=== PATIENT | male | born 1945 | race Caucasian/White ===

== ENCOUNTER 2023-06-09 18:05 | Emergency (ER) | payer MEDICARE, OTHER, SELFPAY ==
[2023-06-09 18:08] VITALS: BP 181/95
[2023-06-09 18:35] LABS: ALT (SGPT) 74 U/L (0-50); AST (SGOT) 109 U/L (17-59); Albumin 4.6 g/dl (3.5-5.0); Alcohol 116 mg/dl; Alkaline Phosphatase 113 U/L (38-126); Blood Urea Nitrogen 14 mg/dl (9-20); Calcium 9.5 mg/dl (8.4-10.2); Carbon Dioxide 21 mmol/L (22-30); Chloride 97 mmol/L (98-107); Glucose 104 mg/dl (70-99); Potassium 4.5 mmol/L (3.5-5.1); Sodium 134 mmol/L (135-145); Total Bilirubin 1.3 mg/dl (0.2-1.3); Total Protein 7.4 g/dl (6.3-8.2); eGFR > 60.00
--- NOTE | 2023-06-09 20:53 | ED.GENMED ---
History of Present Illness
General
Chief Complaint: Alcohol Problem
Source: patient
Exam Limitations: none
Time Seen by Provider: 06/09/23 20:48
Travel History
Have you had any contact with someone who has COVID-19?: No
Do you have any symptoms of coronavirus? Fever > 100 degrees, chills, cough, shortness of breath, sore throat, loss of taste or smell, muscle aches, or headache?: No
History of Present Illness
History of Present Illness:
See MDM
Past History
Past History
ED Past Medical History: Arrthythmia (Atrial fibrillation with prior multiple cardioversions, ablations x 2 last, 2016, on Xarelto), GERD, HTN and Other (H-pylori, hemorrhoids, diverticulosis, hiatal hernia)
ED Past Surgical History: Cardiac and Other (eye surgery)
Social History
Tobacco: Non-smoker
Alcohol: Daily (Beer 4-6 sometimes more)
Drug: None
Personal:
Living: with family
Employment: Retired
Phy Exam
Physical Exam
Physical Exam:
See MDM
Scores
Withdrawal Assessment of Alcohol
Withdrawal Assessment Completed?: Yes
Nausea and Vomiting: Mild nausea with no vomiting
Tactile Disturbances: None
Tremor: Not visible, but can be felt fingertip to fingertip
Auditory Disturbances: Not present
Paroxysmal Sweats: No sweat visible
Visual Disturbances: Not present
Anxiety: Moderately anxious, or guarded, so anxiety is inferred
Headache, Fullness in Head: Not present
Agitation: Moderately fidgety and restless
Orientation and clouding of sensorium: Oriented and can do serial additions
Total CIWA Score: 10
Alcohol Withdrawal Medication Recommendation: Equal to MSAS Score 5-7. Lorazepam 1mg IV or PO NOW & re-assess q2hrs
Course
Orders/Labs/Results
Orders:
Orders
06/09/23 18:15
EKG [Electrocardiogram (*1)] Urgent
Reason for Study: Palpitations
EKG- Treatment ONCE
06/09/23 18:16
Alcohol Urgent
Comprehensive Metabolic Panel Urgent
Lipase Urgent
Comment: ADD ON
06/09/23 20:52
Add On- LAB Urgent
Tests Added?: lipase
0.9% Sodium Chloride 1000 ml [Nss] 1,000 ml IV BOLUS
Lorazepam [Ativan] 2 mg IV NOW STA
06/09/23 21:10
Complete Blood Count/With Diff Urgent
06/09/23 23:20
Lorazepam [Ativan] 1 mg PO NOW STA
Abnormal Lab Results
06/09/23 06/09/23
18:16 21:10
MCH 31.6 H pg
(27.0-31.0)
Absolute Neuts (auto) 8.1 H 10^3/uL
(1.4-6.5)
Neutrophils % 81.5 H %
(42.2-75.2)
Lymphocytes % 13.5 L %
(20.5-51.1)
Sodium 134 L mmol/L
(135-145)
Chloride 97 L mmol/L
(98-107)
Carbon Dioxide 21 L mmol/L
(22-30)
Glucose 104 H mg/dl
(70-99)
AST 109 H U/L
(17-59)
ALT 74 H U/L
(0-50)
06/09/23 21:10
06/09/23 18:16
Vital Signs
Initial and Last Documented VS:
Initial Vital Signs
Temp Pulse Resp BP Pulse Ox
98.5 F 99 20 181/95 96
06/09/23 18:08 06/09/23 18:08 06/09/23 18:08 06/09/23 18:08 06/09/23 18:08
Last Documented Vital Signs
Temp Pulse Resp BP Pulse Ox
98.5 F 81 16 156/71 91
06/09/23 18:08 06/09/23 22:00 06/09/23 22:00 06/09/23 22:00 06/09/23 22:00
MDM/Problems Addressed
Differential Diagnosis Includes:
HPI and MDM Narrative:
77-year-old male presenting with tremors and anxiety. Patient believes he is in alcohol withdrawal. Over the past several days, patient started drinking again. He states he is drinking anywhere from 2-3 bottles of wine a day. His last drink was
at 8 AM this morning. Patient has been throughout the being this bad. He does complain of mild abdominal discomfort and history of pancreatitis
On exam, patient is somewhat anxious and fidgety. Will give IV Ativan and continue to reassess
Physical exam
General: Anxious on,
HEENT: protecting airway
Neck: appears supple
CV: No evidence of cyanosis. Regular rate and rhythm
Resp: No accessory muscle use
Abd: Non-distended. Mild epigastric discomfort
Extremities: No deformities
Neuro: alert
Psych: Normal affect
Skin: Intact
Problems Addressed including Acute and Chronic Conditions affecting care:
1. Alcohol withdrawal
Acuity: acute
Prognosis: stable
Details: Will give IV Ativan and continue to reassess
Updates
10:15 PM on reassessment, patient is much more relaxed and comfortable. Patient showing no evidence of withdrawal at the moment. He is interested in speaking to LAMIN
LAMIN evaluated patient and they discussed outpatient follow-up. Patient is feeling much better and feels comfortable going home
Differential Diagnosis (but not limited to): Pancreatitis, alcohol withdrawal
Testing considered: CT abdomen/pelvis
Drug therapy (if applicable): OTC meds, please see d/c instruction regarding Rx drugs
Amount and/or Complexity of Data Reviewed
Clinical info obtained from: Patient
External data reviewed: N/A
Labs I independently reviewed (but not limited to): Mild LFT elevation
Radiology: N/A
Pulse Ox: not hypoxic
EKG independently reviewed: Sinus rhythm, normal axis, no STEMI
Budget Officer: N/A
Critical Care: N/A
Risk of Complication:
Social Determinants of health: Good social support
Discussed with other providers: N/A
Escalation of Care includes Admit/Obs: After being observed in the Emergency Department, pt stable for discharge.
Occasional wrong word or 'sound a like' substitutions may have occurred due to the inherent limitations of voice recognition software. Read the chart carefully and recognize, using context, where substitutions have occurred.
*Critical Care Note
Total Time (30-74mins, 75-104mins- exclusive of procedures): Not Applicable
ED Attending Note
-
Portions of this chart may have been created with voice recognition software.� Occasional wrong word or��sound alike� substitutions may have occurred due to the inherent limitations of voice recognition software.
Discharge Plan
Departure
Patient Disposition: Home (Routine Discharge)
Date of Disposition: 06/09/23
Time of Disposition: 23:20
Patient with high blood pressure during this ER visit?: Yes
Discharge Problem:
Alcohol withdrawal
Instructions: Alcohol Withdrawal (DC)
Prescriptions:
New
lorazepam [Ativan] 1 mg tablet
1 mg PO TID PRN (Reason: alcohol withdrawal) Qty: 14 0RF
No Action
atenolol 50 MG tablet
50 mg PO DAILYPRN PRN (Reason: palpitations/htn)
dofetilide 500 MCG capsule
500 mcg PO BID
losartan 50 MG tablet
50 mg PO DAILY
metoprolol succinate 50 MG tablet extended release 24 hr
50 mg PO DAILY
milk thistle 500 MG capsule
1 cap PO QPM
amlodipine 5 MG tablet
5 mg PO QPM
Visbiome 112.5 billion cell Capsule
1 cap PO DAILY Qty: 0
Metamucil Fiber Singles 1 PACKET powder in packet
1 packet PO HS
Xarelto 20 MG tablet
20 mg PO QPM PRN (Reason: a-fib)
cholecalciferol (vitamin D3) [Vitamin D3] 50 mcg (2,000 unit) Capsule
50 mcg PO DAILY
pantoprazole [Protonix] 40 mg tablet,delayed release (DR/EC)
40 mg PO DAILY Qty: 30 0RF
Referrals:
Baldemar Bustillo CRNP [Family Provider] -
Activity Restrictions/Additional Instructions:
Please refer to the information provided by the alcohol counselor.
Please take the Ativan as needed for withdrawal symptoms. Please return for worsening symptoms.
Interventions
Interventions:
*Risk Screen - Suicide Last Done: 06/09/23 21:01
*General Assessment Last Done: 06/09/23 21:01
*Neglect/Abuse Screening Last Done: 06/09/23 21:01
ED- Fall Risk Assessment Last Done: 06/09/23 21:01
*ED COVID-19 Vaccine History Last Done: 06/09/23 21:01
ED- Neurological Assessment Last Done: 06/09/23 21:01
ED-Psychological Assessment Last Done: 06/09/23 21:01
[2023-06-09 21:01] VITALS: BMI 38.2
[2023-06-09 21:02] VITALS: BP 168/78
[2023-06-09] MEDS: ATIVAN 2 MG IV (21:17)
[2023-06-09] MEDS: NSS 1000 IV (21:17)
[2023-06-09 21:35] LABS: % Basophils 0.4 % (0-2); % Immature Granulocytes 0.1 % (0-0.5); % Lymphocytes 13.5 % (20.5-51.1); % Monocytes 4.5 % (1.7-9.3); % Neutrophils 81.5 % (42.2-75.2); Absolute Lymphocytes 1.3 10^3/uL (1.2-3.4); Absolute Monocytes 0.5 10^3/uL (0.1-0.6); Absolute Neutrophils 8.1 10^3/uL (1.4-6.5); Hematocrit 43.1 % (39.0-52.0); Hemoglobin 15.2 g/dL (13.0-18.0); Mean Corp Hgb Conc. 35.3 g/dL (33.0-37.0); Mean Corpuscular Hgb 31.6 pg (27.0-31.0); Mean Corpuscular Volume 89.6 fL (80.0-94.0); Nucleated Red Blood Cells % 0 % (-); Platelet Count 226 10^3/uL (130-400); Red Blood Cell Count 4.81 10^6/uL (4.70-6.10); White Blood Cell Count 9.9 10^3/uL (4.8-10.8)
[2023-06-09 21:52] LABS: Lipase 89 U/L (23-300)
[2023-06-09 22:00] VITALS: BP 156/71
[2023-06-09 23:00] VITALS: BP 163/68
[2023-06-09] MEDS: ATIVAN 1 MG PO (23:30)
== END 2023-06-09 23:35 | disposition home or self-care (01) ==
LOC: EMR 18:05
PROVIDERS: Emergency Medicine; EMERGENCY PHYSICIAN Student in an Organized Health Care Education/Training Program; FAMILY PHYSICIAN Registered Nurse
DX: F10.939 Alcohol use, unspecified with withdrawal, unspecified (principal); R11.0 Nausea; R00.2 Palpitations; R25.1 Tremor, unspecified; M54.9 Dorsalgia, unspecified; I48.91 Unspecified atrial fibrillation; F41.9 Anxiety disorder, unspecified; K21.9 Gastro-esophageal reflux disease without esophagitis; I10 Essential (primary) hypertension; K44.9 Diaphragmatic hernia without obstruction or gangrene; K57.90 Diverticulosis of intestine, part unspecified, without perforation or abscess without bleeding; Z79.01 Long term (current) use of anticoagulants; Z88.8 Allergy status to other drugs, medicaments and biological substances
CPT/HCPCS: 99284; 96374; 96361; 80053; 82077; 83690; 85025; 93005

== ENCOUNTER → 2023-06-14 11:55 | Outpatient (REF) | payer MEDICARE, OTHER, SELFPAY ==
[2023-06-14 15:27] LABS: Blood Urea Nitrogen 13 mg/dl (9-20); Calcium 9.5 mg/dl (8.4-10.2); Carbon Dioxide 29 mmol/L (22-30); Chloride 99 mmol/L (98-107); Glucose 99 mg/dl (70-99); Potassium 3.9 mmol/L (3.5-5.1); Sodium 134 mmol/L (135-145); eGFR > 60.00
== END ==
LOC: HWLAB 11:55
PROVIDERS: ATTENDING PHYSICIAN Registered Nurse
DX: F10.90 Alcohol use, unspecified, uncomplicated (principal)
CPT/HCPCS: 36415; 80048

== ENCOUNTER → 2023-08-28 10:01 | Outpatient (REF) | payer MEDICARE, OTHER, SELFPAY ==
[2023-08-28 13:05] LABS: ALT (SGPT) 17 U/L (0-50); AST (SGOT) 26 U/L (17-59); Albumin 4.2 g/dl (3.5-5.0); Alkaline Phosphatase 73 U/L (38-126); Blood Urea Nitrogen 13 mg/dl (9-20); Calcium 9.7 mg/dl (8.4-10.2); Carbon Dioxide 27 mmol/L (22-30); Chloride 103 mmol/L (98-107); Glucose 108 mg/dl (70-99); Potassium 4.3 mmol/L (3.5-5.1); Sodium 138 mmol/L (135-145); Total Bilirubin 0.8 mg/dl (0.2-1.3); eGFR > 60.00
== END ==
LOC: HWLAB 10:01
PROVIDERS: ATTENDING PHYSICIAN Registered Nurse
DX: F10.90 Alcohol use, unspecified, uncomplicated (principal); R74.8 Abnormal levels of other serum enzymes
CPT/HCPCS: 36415; 80053

== ENCOUNTER → 2024-02-28 10:11 | Outpatient (REF) | payer MEDICARE, OTHER, SELFPAY ==
[2024-02-28 12:17] LABS: % Basophils 0.5 % (0-2); % Eosinophils 3.7 % (0-6); % Immature Granulocytes 0.3 % (0-0.5); % Monocytes 8.7 % (1.7-9.3); % Neutrophils 48.8 % (42.2-75.2); Absolute Eosinophils 0.3 10^3/uL (0-0.7); Absolute Lymphocytes 2.9 10^3/uL (1.2-3.4); Absolute Monocytes 0.7 10^3/uL (0.1-0.6); Absolute Neutrophils 3.7 10^3/uL (1.4-6.5); Hematocrit 45.6 % (39.0-52.0); Hemoglobin 15.6 g/dL (13.0-18.0); Mean Corp Hgb Conc. 34.2 g/dL (33.0-37.0); Mean Corpuscular Hgb 31.1 pg (27.0-31.0); Mean Platelet Volume 10.4 fL (7.4-10.4); Nucleated Red Blood Cells % 0 % (-); Platelet Count 250 10^3/uL (130-400); Red Blood Cell Count 5.01 10^6/uL (4.70-6.10); Red Cell Dist. Width 12.5 % (11.5-14.5); White Blood Cell Count 7.5 10^3/uL (4.8-10.8)
[2024-02-28 12:39] LABS: ALT (SGPT) 26 U/L (0-50); AST (SGOT) 29 U/L (17-59); Albumin 4.4 g/dl (3.5-5.0); Alkaline Phosphatase 74 U/L (38-126); Blood Urea Nitrogen 13 mg/dl (9-20); Calcium 9.5 mg/dl (8.4-10.2); Carbon Dioxide 26 mmol/L (22-30); Chloride 103 mmol/L (98-107); Glucose 98 mg/dl (70-99); HDL Cholesterol 41 mg/dl; LDL Cholesterol, Calculated 129 mg/dl; Potassium 4.3 mmol/L (3.5-5.1); Sodium 143 mmol/L (135-145); Total Bilirubin 0.8 mg/dl (0.2-1.3); Total Cholesterol 186 mg/dl (50-199); Total Protein 7.2 g/dl (6.3-8.2); Triglyceride 82 mg/dl (10-149); Very Low Density Lipoprotein 16 mg/dl (0-30); eGFR > 60.00
[2024-02-28 12:55] LABS: Vitamin D, 25-OH*** 42.2 ng/mL (30-80)
[2024-02-28 13:08] LABS: TSH Reflex To Free T4 0.68 uIU/ml (0.47-4.68)
== END ==
LOC: HWLAB 10:11
PROVIDERS: ATTENDING PHYSICIAN Registered Nurse; REFERRING PHYSICIAN Internal Medicine Cardiovascular Disease
DX: E66.01 Morbid (severe) obesity due to excess calories (principal); E55.9 Vitamin D deficiency, unspecified; I10 Essential (primary) hypertension; Z12.5 Encounter for screening for malignant neoplasm of prostate
CPT/HCPCS: 36415; 80053; 80061; 82306; 84443; 85025; G0103

== ENCOUNTER → 2024-09-08 11:14 | Outpatient (REF) | payer MEDICARE, OTHER, SELFPAY | LOC: RAD 11:14 | PROVIDERS: ATTENDING PHYSICIAN Nurse Practitioner Adult Health; FAMILY PHYSICIAN Registered Nurse | DX: M54.6 Pain in thoracic spine (principal) | CPT/HCPCS: 72072 ==

== ENCOUNTER 2025-01-23 12:22 | Inpatient (IN) | payer OTHER, SELFPAY ==
[2025-01-23] VITALS (13 sets, daily range): BP systolic 140–187; BP diastolic 69–91; BMI 31.0; BMI 36.2
[2025-01-23 07:16] LABS: Urine Character Clear (Clear)
[2025-01-23] MEDS: MORPHINE SULFATE 4 MG IV ×2 (07:26→09:44)
[2025-01-23] MEDS: NSS 500 IV (07:26)
[2025-01-23 07:32] LABS: Hematocrit 44.6 % (39.0-52.0); Hemoglobin 15.4 g/dL (13.0-18.0); Mean Corp Hgb Conc. 34.5 g/dL (33.0-37.0); Mean Corpuscular Volume 91.2 fL (80.0-94.0); Nucleated Red Blood Cells % 0 % (-); Platelet Count 216 10^3/uL (130-400); Red Cell Dist. Width 12.8 % (11.5-14.5)
--- NOTE | 2025-01-23 07:39 | ED.GENMED ---
History of Present Illness
<Cherrie Otoole PA-C - Last Filed: 01/24/25 00:21>
General
Chief Complaint: Abdominal Pain
Source: patient
Exam Limitations: none
Time Seen by Provider: 01/23/25 07:05
Nursing documentation reviewed up to this point in time: agreed with
History of Present Illness
History of Present Illness:
Patient is a 79-year-old male with history of paroxysmal atrial fibrillation, hypertension who presents to the emergency department with 2 days of abdominal pain. He reports mild generalized abdominal pain which began on which seem to
localize to his right upper abdomen yesterday. He also reports an aching pain in his right mid back. Symptoms are progressively worsening and currently 8�9/10 in severity. He denies any associated fever, chills, nausea, vomiting. He has had a
few episodes of diarrhea. No dysuria or hematuria. No chest pain or shortness of breath.
He does not have any known sick contacts.
He does have a history of pancreatitis however states this feels 'different'.
He is not currently on any oral anticoagulation.
Past History
<Cherrie Otoole PA-C - Last Filed: 01/24/25 00:21>
Past History
ED Past Medical History: Arrthythmia (Atrial fibrillation with prior multiple cardioversions, ablations x 2 last2016, on Xarelto), GERD, HTN and Other (H-pylori, hemorrhoids, diverticulosis, hiatal hernia)
ED Past Surgical History: Cardiac and Other (eye surgery)
Social History
Tobacco: Non-smoker
Alcohol: Daily (Beer 4-6 sometimes more)
Drug: None
Personal:
Living: with family
Employment: Retired
Review of Systems
<Cherrie Otoole PA-C - Last Filed: 01/24/25 00:21>
Review of Systems
Allergies reviewed?: Yes
All Other Systems: ROS reviewed and negative except as documented in HPI and ROS
Phy Exam
<Cherrie Otoole PA-C - Last Filed: 01/24/25 00:21>
Physical Exam
Physical Exam:
Vitals: Hypertensive, otherwise vital signs stable. Afebrile
General: Patient is well appearing, no acute distress. Nontoxic appearing
Skin: Warm and dry, no rashes or lesions
Head: Normocephalic, atraumatic
Eyes: Sclera nonicteric.
Throat: Protecting airway
Neck: Normal ROM, no cervical spine tenderness, no meningismus
Cardiac: Regular rate and rhythm, no murmurs.
Pulm: Normal respiratory effort. Lungs clear bilaterally
Abdomen: Abdomen soft. Moderate reproducible tenderness in right upper quadrant. No rebound tenderness or guarding. Negative White sign
Extremities: Bilateral lower extremity edema.
Neuro: AAOx3. Grossly intact.
Psychiatric: Normal affect.
Course
<Cherrie Otoole PA-C - Last Filed: 01/24/25 00:21>
Orders/Labs/Results
Orders:
Orders
01/23/25 Breakfast
NPO
Allow oral meds: Yes
Allow clear liquids: No
01/23/25 06:32
Urinalysis Reflex To Culture Urgent
Date Specimen was Collected: 01/23/25
Time Specimen was Collected: 06:28
Urine Microscopic Reflex Cult Urgent
01/23/25 07:14
CMP [Comprehensive Metabolic Panel] Urgent
Complete Blood Count/With Diff Urgent
Direct Bilirubin Urgent
Comment: ADD ON
Lipase Urgent
01/23/25 07:19
0.9% Sodium Chloride 500 ml [Nss] 500 ml IV BOLUS
Morphine Sulfate 4 mg IV NOW STA
US Abdomen Complete/Upper Urgent
Comment:
Reason For Exam: RUQ pain
01/23/25 07:45
Add On- LAB Urgent
Tests Added?: direct bilirubin
01/23/25 09:04
Lactated Ringers [Lr] 500 ml IV BOLUS
01/23/25 09:07
Morphine Sulfate 4 mg IV NOW STA
01/23/25 10:00
Piperacillin/Tazo 3.375 Gram [Zosyn] 3.375 gram in 50 ml IV NOW
01/23/25 10:[address] Non Medication Order As Directed
Physician Order: medication reconciliation
Above order entered?: Yes
01/23/25 11:59
Admit/Transfer Patient As Directed
Co-Sign Provider:
Level of Care: Inpatient admission
Assign to:: Telemetry
Physician / Group: pasricha/medicine
Diagnosis: pancreatitis/acute jon
Reason for Telemetry: Arrhythmia
Date to Stop Telemetry: 01/26/25
Time to Stop Telemetry: 11:00
Reason for Hospitalization: pancreatitis/acute jon
Expected length of stay greater than two midnights?: Yes
ELOS- Estimated Length of Stay in days: 3
I certify the patient meets the requirements for IP care: Yes
PRN Pain Medication Management As Directed
May give lesser potent ordered pain med per pt: Yes
preference::
Protocol:: Medication orders for pain may be administered in a
manner that supports deferring to patient preference
when the pt is:
- Requesting an ordered lesser potent pain medication.
Least to most potent pain medications are defined
as: acetaminophen < NSAID < tramadol < opioids
(morphine, oxycodone, hydromorphone).
- Requesting a lesser dose of the same medication IF
ORDERED.
- Requesting a less intrusive route of administration
if both routes are prescribed by the provider (PO <
IV).
01/23/25 12:00
Code Status As Directed
Resuscitation Status: Full Code
01/23/25 14:02
Atenolol [Tenormin] 50 mg PO DAILYPRN PRN palpitations/htn
Bisacodyl [Dulcolax] 10 mg RECTAL [id number] PRN
Docusate W/Senna [Senokot-S] 1 tablet PO BIDPRN PRN
Lactated Ringers [Lr] 1,000 ml IV 150 mls/hr
Morphine Sulfate 4 mg IV Q4HPRN PRN
Ondansetron Injectable [Zofran] 4 mg IV Q6HPRN PRN
Polyethylene Glycol Powder [Miralax] 17 grams PO DAILYPRN PRN
01/23/25 14:02
Consult Surgery [SURGICAL CONSULT] Routine
Consulting Provider: Ke Alfonso
Was physician already notified: Yes
Activity As Directed
Activity Level: As Tolerated
Vital Signs As Directed
Frequency: Per unit guidelines
DX Deep Vein Thrombosis Video Routine
01/23/25 16:00
Heparin 5,000 units SC Q8
01/23/25 20:00
Dofetilide [Tikosyn] 500 mcg PO BID
01/24/25 06:00
Complete Blood Count/No Diff IN AM
Comprehensive Metabolic Panel IN AM
Lipase IN AM
01/24/25 08:00
Metoprolol Xl [Toprol Xl] 50 mg PO DAILY
01/25/25 06:00
Complete Blood Count/No Diff IN AM
Comprehensive Metabolic Panel IN AM
Lipase IN AM
01/26/25 06:00
Lipase IN AM
01/26/25 11:00
DC Protocol for Telemetry ONCE
Abnormal Lab Results
01/23/25 01/23/25
06:32 07:14
WBC 15.6 H 10^3/uL
(4.8-10.8)
MCH 31.5 H pg
(27.0-31.0)
Abs Immat Gran (auto) 0.3 H 10^3/uL
(0-0.05)
Absolute Neuts (auto) 13.5 H 10^3/uL
(1.4-6.5)
Absolute Lymphs (auto) 0.9 L 10^3/uL
(1.2-3.4)
Absolute Monos (auto) 0.8 H 10^3/uL
(0.1-0.6)
Immature Gran % 2.1 H %
(0-0.5)
Neutrophils % 86.5 H %
(42.2-75.2)
Lymphocytes % 5.8 L %
(20.5-51.1)
Sodium 133 L mmol/L
(135-145)
Glucose 121 H mg/dl
(70-99)
Total Bilirubin 2.2 H mg/dl
(0.2-1.3)
Direct Bilirubin 0.6 H mg/dl
(0.0-0.4)
Lipase > 4000 H* U/L
(23-300)
Urine Ketones 3+ A
(Negative)
Ur Occult Blood Reflex 1+ A
(Negative)
Urine RBC 3-6 A /HPF
(0-2)
Urine Albumin (Reflex) 1+ A
(Neg - Trace)
01/23/25 07:14
01/23/25 07:14
Vital Signs
Initial and Last Documented VS:
Initial Vital Signs
Temp Pulse Resp BP Pulse Ox
98.7 F 82 18 176/91 98
01/23/25 06:21 01/23/25 06:21 01/23/25 06:21 01/23/25 06:21 01/23/25 06:21
Last Documented Vital Signs
Temp Pulse Resp BP Pulse Ox
98.7 F 78 18 166/82 95
01/23/25 19:23 01/23/25 19:23 01/23/25 19:23 01/23/25 19:23 01/23/25 19:23
<Salvatore Brown, DO - Last Filed: 01/23/25 09:37>
Orders/Labs/Results
Orders:
Orders
01/23/25 Breakfast
NPO
Allow oral meds: Yes
Allow clear liquids: No
01/23/25 06:32
Urinalysis Reflex To Culture Urgent
Date Specimen was Collected: 01/23/25
Time Specimen was Collected: 06:28
Urine Microscopic Reflex Cult Urgent
01/23/25 07:14
CMP [Comprehensive Metabolic Panel] Urgent
Complete Blood Count/With Diff Urgent
Direct Bilirubin Urgent
Comment: ADD ON
Lipase Urgent
01/23/25 07:19
0.9% Sodium Chloride 500 ml [Nss] 500 ml IV BOLUS
Morphine Sulfate 4 mg IV NOW STA
US Abdomen Complete/Upper Urgent
Comment:
Reason For Exam: RUQ pain
01/23/25 07:45
Add On- LAB Urgent
Tests Added?: direct bilirubin
01/23/25 09:04
Lactated Ringers [Lr] 500 ml IV BOLUS
01/23/25 09:07
Morphine Sulfate 4 mg IV NOW STA
01/23/25 10:00
Piperacillin/Tazo 3.375 Gram [Zosyn] 3.375 gram in 50 ml IV NOW
01/23/25 10:[address] Non Medication Order As Directed
Physician Order: medication reconciliation
Above order entered?: Yes
01/23/25 11:59
Admit/Transfer Patient As Directed
Co-Sign Provider:
Level of Care: Inpatient admission
Assign to:: Telemetry
Physician / Group: pasricha/medicine
Diagnosis: pancreatitis/acute jon
Reason for Telemetry: Arrhythmia
Date to Stop Telemetry: 01/26/25
Time to Stop Telemetry: 11:00
Reason for Hospitalization: pancreatitis/acute jon
Expected length of stay greater than two midnights?: Yes
ELOS- Estimated Length of Stay in days: 3
I certify the patient meets the requirements for IP care: Yes
PRN Pain Medication Management As Directed
May give lesser potent ordered pain med per pt: Yes
preference::
Protocol:: Medication orders for pain may be administered in a
manner that supports deferring to patient preference
when the pt is:
- Requesting an ordered lesser potent pain medication.
Least to most potent pain medications are defined
as: acetaminophen < NSAID < tramadol < opioids
(morphine, oxycodone, hydromorphone).
- Requesting a lesser dose of the same medication IF
ORDERED.
- Requesting a less intrusive route of administration
if both routes are prescribed by the provider (PO <
IV).
01/23/25 12:00
Code Status As Directed
Resuscitation Status: Full Code
01/23/25 14:02
Atenolol [Tenormin] 50 mg PO DAILYPRN PRN palpitations/htn
Bisacodyl [Dulcolax] 10 mg RECTAL [id number] PRN
Docusate W/Senna [Senokot-S] 1 tablet PO BIDPRN PRN
Lactated Ringers [Lr] 1,000 ml IV 150 mls/hr
Morphine Sulfate 4 mg IV Q4HPRN PRN
Ondansetron Injectable [Zofran] 4 mg IV Q6HPRN PRN
Polyethylene Glycol Powder [Miralax] 17 grams PO DAILYPRN PRN
01/23/25 14:02
Consult Surgery [SURGICAL CONSULT] Routine
Consulting Provider: Ke Alfonso
Was physician already notified: Yes
Activity As Directed
Activity Level: As Tolerated
Vital Signs As Directed
Frequency: Per unit guidelines
DX Deep Vein Thrombosis Video Routine
01/23/25 16:00
Heparin 5,000 units SC Q8
01/23/25 20:00
Dofetilide [Tikosyn] 500 mcg PO BID
01/24/25 06:00
Complete Blood Count/No Diff IN AM
Comprehensive Metabolic Panel IN AM
Lipase IN AM
01/24/25 08:00
Metoprolol Xl [Toprol Xl] 50 mg PO DAILY
01/25/25 06:00
Complete Blood Count/No Diff IN AM
Comprehensive Metabolic Panel IN AM
Lipase IN AM
01/26/25 06:00
Lipase IN AM
01/26/25 11:00
DC Protocol for Telemetry ONCE
Abnormal Lab Results
01/23/25 01/23/25
06:32 07:14
WBC 15.6 H 10^3/uL
(4.8-10.8)
MCH 31.5 H pg
(27.0-31.0)
Abs Immat Gran (auto) 0.3 H 10^3/uL
(0-0.05)
Absolute Neuts (auto) 13.5 H 10^3/uL
(1.4-6.5)
Absolute Lymphs (auto) 0.9 L 10^3/uL
(1.2-3.4)
Absolute Monos (auto) 0.8 H 10^3/uL
(0.1-0.6)
Immature Gran % 2.1 H %
(0-0.5)
Neutrophils % 86.5 H %
(42.2-75.2)
Lymphocytes % 5.8 L %
(20.5-51.1)
Sodium 133 L mmol/L
(135-145)
Glucose 121 H mg/dl
(70-99)
Total Bilirubin 2.2 H mg/dl
(0.2-1.3)
Direct Bilirubin 0.6 H mg/dl
(0.0-0.4)
Lipase > 4000 H* U/L
(23-300)
Urine Ketones 3+ A
(Negative)
Ur Occult Blood Reflex 1+ A
(Negative)
Urine RBC 3-6 A /HPF
(0-2)
Urine Albumin (Reflex) 1+ A
(Neg - Trace)
01/23/25 07:14
01/23/25 07:14
Vital Signs
Initial and Last Documented VS:
Initial Vital Signs
Temp Pulse Resp BP Pulse Ox
98.7 F 82 18 176/91 98
01/23/25 06:21 01/23/25 06:21 01/23/25 06:21 01/23/25 06:21 01/23/25 06:21
Last Documented Vital Signs
Temp Pulse Resp BP Pulse Ox
98.7 F 78 18 166/82 95
01/23/25 19:23 01/23/25 19:23 01/23/25 19:23 01/23/25 19:23 01/23/25 19:23
<Cherrie Otoole PA-C - Last Filed: 01/24/25 00:21>
MDM/Problems Addressed
Differential Diagnosis Includes:
Not limited to: Biliary colic, acute cholecystitis, choledocholithiasis, pancreatitis, cholangitis, appendicitis, gastritis, etc.
MDM/Problems Addressed:
79 year old male with 2 days of right upper abdominal pain associated with anorexia. No fevers, vomiting, urinary symptoms. Past history of pancreatitis. Vitals and physical exam as above.
He appears well and nontoxic. His abdomen is soft with majority of tenderness in right upper abdomen/right mid back. No rebound tenderness or guarding. No focal tenderness at McBurney�s point.
Differential broad. Potentially recurrent pancreatitis. Possible biliary etiology such as biliary colic, acute cholecystitis, choledocholithiasis. Symptoms may reflect appendicitis less likely renal colic. Do not suspect vascular process.
ED plan: labs, UA. Will start with abdominal ultrasound. Will give IV fluids and treat pain.
Update: CBC reveals Leukocytosis. Chemistry reveals mild elevation in total bilirubin with lipase > 4000. Ultrasound with finding suspicious of acute cholecystitis given gallbladder wall thickening as well as pericholecystic fluid.
With elevated bilirubin and lipase � concern for possible obstructing stone.
Will start patient on IV antibiotics and admit for further work up. Patient will likely need MRCP. Patient accepted to hospitalist service in stable condition. General surgery aware.
Chronic conditions affecting care:
Hypertension
Acute Exacerbation and/or Progression of Chronic Illness:
Acutely hypertensive, acute pancreatitis
<Cherrie Otoole PA-C - Last Filed: 01/24/25 00:21>
*Radiology
Radiology exam reviewed: radiology read reviewed
*Pulse Oximetry
SaO2: 98
Oxygen Mode of Delivery: Room air
Patient hypoxic: no
*EKG
Interpreted by ED Provider?: NA
*Sample Taker Operator Interpretation
Rate: normal
Interpretation: normal
Heart Rate: 80
Rhythm: sinus
*Critical Care Note
Total Time (30-74mins, 75-104mins- exclusive of procedures): Not Applicable
<Cherrie Otoole PA-C - Last Filed: 01/24/25 00:21>
Patient Management
Discussion with other providers: Hospitalist and Cullet Washer (Case discussed with general surgery)
Escalation/DeEscalation of care consider admission/obs:
Admit for further management
ED Attending Note
<Cherrie Otoole PA-C - Last Filed: 01/24/25 00:21>
-
Portions of this chart may have been created with voice recognition software.� Occasional wrong word or��sound alike� substitutions may have occurred due to the inherent limitations of voice recognition software.
<Salvatore Brown, DO - Last Filed: 01/23/25 09:37>
ED Attending Note
Patient seen and examined by attending physician: Yes
ED Attending Note:
I reviewed and agree with history treatment plan by Cherrie Otoole PA-C. My exam revealed
Physical Exam
General: no apparent distress, not acutely ill
Neck: supple. no meningeal signs. normal posterior pharynx
Heart: s1/s2 regular rate and rhythm, no murmur. equal radial
pulses.
HEENT: Pupils equal round reactive to light, EOMI
Lungs: no acute respiratory distress. clear bilaterally
Abdomen: normal bowel sounds. Mild epigastric tenderness, no rebound or guarding. No CVAT
Neuro: alert and oriented. no focal neurological deficits cranial nerves II through XII intact
Skin: no rash
Psychiatric: well kept. interactive and cooperative
Extremities: no edema. no calf tenderness. negative homans. good distal pulses
79-year-old male with pancreatitis likely due to alcohol abuse as he has had in the past. Last drink 2 to 3 days ago. Will monitor for alcohol withdrawal, does not appear to be in withdrawal at this time. Admit to hospitalist
Discharge Plan
Departure
Patient Disposition: Admit
Date of Disposition: 01/23/25
Time of Disposition: 09:07
Presentation/result/management discussed w/ accepting MD/DO: Hospitalist
Patient with high blood pressure during this ER visit?: Yes
Condition: Good
Discharge Problem:
Acute pancreatitis, Acute cholecystitis
Interventions
Interventions:
*Risk Screen - Suicide Last Done: 01/23/25 06:21
*General Assessment Last Done: 01/23/25 06:57
*Neglect/Abuse Screening Last Done: 01/23/25 06:57
*ED- Fall Risk Assessment Last Done: 01/23/25 06:57
*ED COVID-19 Vaccine History Last Done: 01/23/25 06:57
*Nursing Disposition Last Done: 01/23/25 13:51
IZ-Miwpld-Yrmovaciab Assessment Last Done: 01/23/25 06:57
Discharge Date and Time
Discharge Date/Time: 01/23/25 13:51
[2025-01-23 07:41] LABS: ALT (SGPT) 26 U/L (0-50); AST (SGOT) 33 U/L (17-59); Albumin 4.0 g/dl (3.5-5.0); Alkaline Phosphatase 83 U/L (38-126); Blood Urea Nitrogen 13 mg/dl (9-20); Calcium 9.1 mg/dl (8.4-10.2); Carbon Dioxide 26 mmol/L (22-30); Chloride 101 mmol/L (98-107); Estimated Creatinine Clearance 108 ml/min; Glucose 121 mg/dl (70-99); Potassium 3.8 mmol/L (3.5-5.1); Sodium 133 mmol/L (135-145); Total Protein 7.1 g/dl (6.3-8.2); eGFR > 60.00
[2025-01-23 07:55] LABS: Lipase > 4000 U/L (23-300)
[2025-01-23 08:20] LABS: Urine Squamous Cell 0-2 /LPF (Few)
--- NOTE | 2025-01-23 09:31 | HPS.HSE ---
Family Physician
-
Family Physician: PHYSICIAN PRIVATE
Chief Complaint
-
abdominal pain
History of Present Illness
79-year-old male with atrial fibrillation not on anticoagulation, GERD, hypertension now presenting for abdominal pain.�Symptoms began on , 2 days ago particularly was felt in the right upper quadrant. Has some diarrhea, minimal p.o.
intake. Of note has a history of pancreatitis in the past. Patient drinks 4-6 beers daily; no smoking. No fever, chills, nausea, vomiting. No sick contacts. No recent weight loss. Afebrile, pulse 72, blood pressure 155/88, respiratory rate is
18. Labs remarkable for white count of 15.6, sodium 133, bilirubin 2.2 with direct bili 0.6, lipase over 4000, UA negative
Medical History
Past Medical History
Past Medical History: Reports Other (Arrthythmia (Atrial fibrillation with prior multiple cardioversions, ablations x 2 last, 2016, not on Xarelto anymore), GERD, HTN, Other (H-pylori, hemorrhoids, diverticulosis, hiatal hernia) hematochezia due to
hemorrhoidal bleeding.))
Past Surgical History: Reports Other
Social History
Tobacco: Non-smoker
Alcohol: Daily (4-6 beers daily)
Personal:
Living: With Family
Family History
Family History: Not pertinent
Allergies / Home Medications
Allergies reflects when Allergies were last updated in [facility].
Home Medications with original date entered in [facility]
Allergy/Medication List:
Allergies
Allergy/AdvReac Type Severity Reaction Status Date / Time
lisinopril Allergy COUGH Verified 01/23/25 06:21
Home Medications
atenolol 50 mg tablet 50 mg PO DAILYPRN PRN palpitations/htn 08/19/18
Lactobac no.2-Bifidobac no.1-S. thermo 112.5 billion cell capsule (Visbiome) 1 cap PO DAILY Gastrointestinal issue ##0 07/27/20
amlodipine 5 mg tablet 5 mg PO QPM Blood pressure 07/27/20
dofetilide 500 mcg capsule 500 mcg PO BID Arrhythmia 07/27/20
losartan 50 mg tablet 50 mg PO DAILY Blood pressure 07/27/20
metoprolol succinate 50 mg tablet,extended release 24 hr 50 mg PO DAILY Heart disease/condition 07/27/20
milk thistle 500 mg capsule 1 cap PO QPM Supplement 07/27/20
psyllium husk 3.4 gram oral powder packet (Metamucil Fiber (aspartame)) 1 packet PO HS Supplement 07/27/20
rivaroxaban 20 mg tablet (Xarelto) 20 mg PO QPM PRN a-fib 07/27/20
cholecalciferol (vitamin D3) 50 mcg (2,000 unit) capsule (Vitamin D3) 50 mcg PO DAILY Supplement 08/01/22
pantoprazole 40 mg tablet,delayed release (Protonix) 40 mg PO DAILY #30 tabs 08/19/22
lorazepam 1 mg tablet (Ativan) 1 mg PO TID PRN alcohol withdrawal #14 tabs 06/09/23
Review of Systems
-
History Source: Patient
A 12 point ROS was completed and negative except as noted: Yes
Physical Exam
Vital Signs
Vital Signs
Temp Pulse Resp BP Pulse Ox
98.7 F 72 18 155/88 99
01/23/25 06:21 01/23/25 09:01 01/23/25 06:21 01/23/25 09:00 01/23/25 09:01
Physical Exam
General: Well Developed, Well Nourished and No Apparent Distress
Respiratory: Clear
Cardiac: S1/S2 and Regular Rhythm
GI: Tender (Moderate reproducible tenderness in right upper quadrant. No rebound tenderness or guarding. Negative White sign)
Musculoskeletal: No Clubbing
Skin: Warm
Neuro: AO x 3
Hematologic/Lymphatic: No Lymphadenopathy
Psych: Calm
Laboratory Results
-
01/23/25 07:14
01/23/25 07:14
Laboratory Results
Total Bilirubin 2.2 mg/dl (0.2-1.3) H 01/23/25 07:14
AST 33 U/L (17-59) 01/23/25 07:14
ALT 26 U/L (0-50) 01/23/25 07:14
Alkaline Phosphatase 83 U/L (38-126) 01/23/25 07:14
Lipase > 4000 U/L (23-300) H* 01/23/25 07:14
Data Reviewed
-
Ultrasound: Report Reviewed by me
Lab Data: Labs Reviewed by me
Old Records: Reviewed
Impression/Plan
-
IMPRESSION:
79-year-old male with atrial fibrillation not on anticoagulation, GERD, hypertension now presenting for abdominal pain.�Symptoms began on , 2 days ago particularly was felt in the right upper quadrant.
PLAN:
#Right upper quadrant abdominal pain
#Pancreatitis
#Acute cholecystitis.
#Hyperbilirubinemia
# Possible exacerbation could be alcohol intake although with elevated bilirubin could be related to biliary stone
� Suspicious for choledocholithiasis with elevated bilirubin
� MRCP ordered
� Continue aggressive IV fluids
� IV abx
- N.p.o. for now
� Pain control, antiemetics
- Gen Surg Consulted
# EtOH intake
� 4-6 beers daily
� CIWA protocol
#Atrial fibrillation
� Holding Xarelto for possible procedure
� Continue home regimen
�Continue dofetilide, Toprol
� HSQ for now
#GERD
#Hypertension
- Holding antihypertensives
#Anxiety
#DVT prophylaxis
� HSQ - holding Xarelto for possible procedure
[2025-01-23] MEDS: LR 500 IV (09:43)
[2025-01-23] MEDS: ZOSYN 50 IV ×3 (10:15→22:12)
--- NOTE | 2025-01-23 11:53 | CM ---
CM met with pt and spouse bedside
They reside in a 2SH with 3STE, first full set up with primary bed and bathroom
Pt has walk-in shower with small step, bench in shower and grab bars
Pt is independent with his ADLs, no ADs
Pt has a WW of his in-laws available for use if needed
Pt has working cpapc at home but does not utilize it
Denies financial insecurities
PCP- Baldemar Bustillo/Maria Isabel Henry
Rx- Jamar/Saul
Discharge Disposition- anticipate home, no needs
[2025-01-23] MEDS: LR 1000 IV ×2 (14:25→20:23)
[2025-01-23] MEDS: DILAUDID 0.5 MG IV ×3 (14:57→23:14)
[2025-01-23] MEDS: HEPARIN 5000 UNITS SC ×2 (16:39→23:06)
--- NOTE | 2025-01-23 17:08 | PTCARENOTE ---
Dr. Fraser made aware pt. b/p elevated on arrival to unit but was in pain at this time. Pain medication as ordered. Rechecked b/p and remains elevated. Per Dr. Fraser, this nurse to monitor. Pt. and spouse updated.
[2025-01-23] MEDS: TIKOSYN 500 MCG PO (20:10)
[2025-01-23] MEDS: THIAMINE INJECTION 200 MG IV (20:12)
[2025-01-24] VITALS (8 sets, daily range): BP systolic 137–172; BP diastolic 73–85; BMI 36.2
[2025-01-24] MEDS: LOPRESSOR 12.5 MG PO (02:00)
[2025-01-24] MEDS: DILAUDID 0.5 MG IV ×3 (03:36→18:09)
[2025-01-24] MEDS: ZOSYN 50 IV ×4 (03:41→22:37)
[2025-01-24] MEDS: LR 1000 IV ×3 (03:56→22:09)
[2025-01-24 06:26] LABS: Hematocrit 46.1 % (39.0-52.0); Hemoglobin 15.6 g/dL (13.0-18.0); Mean Corp Hgb Conc. 33.8 g/dL (33.0-37.0); Mean Corpuscular Volume 93.3 fL (80.0-94.0); Platelet Count 200 10^3/uL (130-400); Red Cell Dist. Width 12.9 % (11.5-14.5)
[2025-01-24 06:48] LABS: ALT (SGPT) 21 U/L (0-50); AST (SGOT) 28 U/L (17-59); Albumin 3.8 g/dl (3.5-5.0); Alkaline Phosphatase 79 U/L (38-126); Blood Urea Nitrogen 10 mg/dl (9-20); Calcium 8.9 mg/dl (8.4-10.2); Carbon Dioxide 28 mmol/L (22-30); Chloride 99 mmol/L (98-107); Estimated Creatinine Clearance 117 ml/min; Glucose 102 mg/dl (70-99); Potassium 3.7 mmol/L (3.5-5.1); Sodium 133 mmol/L (135-145); Total Protein 6.7 g/dl (6.3-8.2); eGFR > 60.00
[2025-01-24 07:06] LABS: Lipase > 4000 U/L (23-300)
[2025-01-24] MEDS: TOPROL XL 50 MG PO (08:03)
[2025-01-24] MEDS: THIAMINE INJECTION 200 MG IV ×2 (08:03→20:08)
[2025-01-24] MEDS: HEPARIN 5000 UNITS SC ×3 (08:03→23:15)
[2025-01-24] MEDS: TIKOSYN 500 MCG PO ×2 (08:04→20:08)
[2025-01-24] MEDS: SENOKOT-S 1 TABLET PO ×2 (08:23→20:19)
--- NOTE | 2025-01-24 08:25 | PTCARENOTE ---
Pt. states he feels bloated and has not had a BM since 01/22. Pt. also stated he doesn't feel like he is urinating enough. Pt. bladder scanned for 128 ml at this time. Senokot given as ordered.
[2025-01-24] MEDS: MORPHINE SULFATE 4 MG IV (13:16)
--- NOTE | 2025-01-24 14:02 | W.PN.HOSP.TC ---
Today's Communication/Plan
-
Await MRCP read
IV abx
IVF
NPO
gen surg recs
GI depending on MRCP
Assessment / Plan
Assessment / Plan
79-year-old male with atrial fibrillation not on anticoagulation, GERD, hypertension now presenting for abdominal pain.�Symptoms began on , 2 days ago particularly was felt in the right upper quadrant.
PLAN:
#Right upper quadrant abdominal pain
#Pancreatitis
#Acute cholecystitis.
#Hyperbilirubinemia
# Possible exacerbation could be alcohol intake although with elevated bilirubin likely related to biliary stone
� Suspicious for choledocholithiasis with elevated bilirubin
� MRCP ordered
� Continue aggressive IV fluids
� IV abx
- N.p.o. for now
� Pain control, antiemetics
- Gen Surg Consulted
-GI consult pending MRCP
# EtOH intake
� 4-6 beers daily
� CIWA protocol
#Hyponatremia
-mild
-monitor
#Atrial fibrillation
� Holding Xarelto for possible procedure
� Continue home regimen
�Continue dofetilide, Toprol
� HSQ for now
#GERD
#Hypertension
- Holding antihypertensives
#Anxiety
#DVT prophylaxis
� HSQ - holding Xarelto for possible procedure
Total time spent on today's encounter was 51 minutes which included time spent in counseling the patient/family regarding diagnosis and treatment plan as listed above, goals of care, and symptom management. Case was discussed with nursing staff,
specialists, and care coordinators/case management. All labs and imaging personally reviewed by me. Remainder the time spent in detailed review of previous records, lab data, imaging, and other medical provider documentation.
Anticipated Discharge: > 48 hours
Subjective/Interval History
-
Date of Service: January 24, 2025
feels somewhat better
Objective Data
-
Labs:
Laboratory Results
01/24/25
06:08
WBC 22.9 H
Hgb 15.6
Hct 46.1
Plt Count 200
Sodium 133 L
Potassium 3.7
Chloride 99
Carbon Dioxide 28
BUN 10
Creatinine 0.7
Glucose 102 H
Calcium 8.9
Total Bilirubin 2.3 H
AST 28
ALT 21
Alkaline Phosphatase 79
Vital Signs:
Vital Signs
Temp Pulse Resp BP Pulse Ox
98.4 F 69 20 153/79 95
01/24/25 11:35 01/24/25 11:35 01/24/25 11:35 01/24/25 11:35 01/24/25 11:35
I&O
01/23/25 01/24/25 01/25/25
06:59 06:59 06:59
Output Total 400 / 400
Balance -400 / -400
Review of Systems
-
All other systems: Reviewed and negative
Physical Exam
-
General: Obese
HEENT: Moist Mucous Membranes
Respiratory: Clear to Auscultation
Cardiac: Regular Rhythm and S1/S2; Negative Murmur
GI: Soft, Normal Bowel Sounds, Tender and Distended
Musculoskeletal: No Edema
Neuro: Awake, No Motor Deficits and Nonfocal/Grossly Intact
Data Reviewed
-
Ultrasound: Report Reviewed by me
Labs: Labs Reviewed by me
--- NOTE | 2025-01-24 15:15 | PTCARENOTE ---
Dr. Fraser made aware pt.'s b/p 172/82 hr 75. New PRN order to be placed for sbp > 180. Pt. updated on plan. Will monitor at this time.
--- NOTE | 2025-01-24 15:32 | CON.GS ---
Addendum entered and electronically signed by Ke Alfonso MD 01/24/25 18:23:
I saw and examined the patient.
The Glass Engraver's note was reviewed and I agree with the note.
Comment: Feels improved, less abd pain, remains moderately ttp to epigastrium, less to RUQ, no stones on imaging, MRI read pending, denies daily drinking though has had EtOH pancreatitis (suspected) in the past plan: npo, ivf, serial abd exams
Original Note:
Consultation
-
Date/Time Consultation Performed: 01/24/25 1450
Medical History
-
Chief Complaint: upper abdominal pain
History of Present Illness:
Mr Menendez is a 79 yo male with a h/o pancreatitis x2 episodes in the past thought to be secondary to ETOH at the time who presents with upper abdominal pain across his upper abdomen radiating across to the right and left sides. He is most tender the
epigastrium. Symptoms began 3-4 days ago. He denies nausea or vomiting. He denies fevers or chills. On exam, he does deny daily drinking but does have a history of heavy beer intake. He notes that since presentation, his pain has improved.
Past Medical History
Past Medical History: Arrhythmias (Afib s/p multiple CVs and ablation x2 (off AC)), GERD, HTN and Other (AKASH, h. pylori, osteopenia, pancreatitis x2)
Past Surgical History: Cardiac
Social History
Tobacco: Non-Smoker
Alcohol: Occasional (denies daily drinking during exam but does drink beer regularly)
Personal:
Living: With Family
Family History
Family History: Reviewed & Not Pertinent
Allergies / Home Medications
Allergy/AdvReac Type Severity Reaction Status Date / Time
lisinopril Allergy COUGH Verified 01/23/25 06:21
�Medication �Instructions �Recorded �Confirmed �Type
atenolol 50 mg tablet 50 mg PO DAILYPRN PRN 08/19/18 01/23/25 History
palpitations/htn
amlodipine 5 mg tablet 5 mg PO QPM Blood pressure 07/27/20 01/23/25 History
dofetilide 500 mcg capsule 500 mcg PO BID Arrhythmia 07/27/20 01/23/25 History
metoprolol succinate 50 mg 50 mg PO DAILY Heart 07/27/20 01/23/25 History
tablet,extended release 24 hr disease/condition
milk thistle 500 mg capsule 1 cap PO QPM Supplement 07/27/20 01/23/25 History
rivaroxaban 20 mg tablet (Xarelto) 20 mg PO QPM PRN a-fib 07/27/20 01/23/25 History
cholecalciferol (vitamin D3) 50 50 mcg PO DAILY Supplement 08/01/22 01/23/25 History
mcg (2,000 unit) capsule (Vitamin
D3)
Review of Systems
-
History Source: Patient
All other systems: Negative unless noted
A 10 point review of systems was completed, and was negative except as per HPI.
Physical Exam
Vital Signs
Temp Pulse Resp BP Pulse Ox
98.4 F 69 20 153/79 95
01/24/25 11:35 01/24/25 11:35 01/24/25 11:35 01/24/25 11:35 01/24/25 11:35
01/23/25 01/24/25 01/25/25
06:59 06:59 06:59
Actual Weight 120.854 kg
Body Mass Index (BMI) 36.2
Lab Results
01/24/25 06:08
01/24/25 06:08
WBC 22.9 10^3/uL (4.8-10.8) H 01/24/25 06:08
Hgb 15.6 g/dL (13.0-18.0) 01/24/25 06:08
Hct 46.1 % (39.0-52.0) 01/24/25 06:08
Plt Count 200 10^3/uL (130-400) 01/24/25 06:08
Abs Immat Gran (auto) 0.3 10^3/uL (0-0.05) H 01/23/25 07:14
Neutrophils % 86.5 % (42.2-75.2) H 01/23/25 07:14
Physical Exam
General: Well Developed and Well Nourished
HEENT: Moist Mucous Membranes
Respiratory: Non Labored Respirations
GI: Soft, Non Tender and Tender (across upper abdomen, most tender to epigastrium)
Skin: Warm and Dry
Neuro: Awake, Alert and AO x 3
Psych: Calm
Data Reviewed
-
CT Scan: Image Personally Visualized and interpreted, Report Reviewed by me, Discussed with Physician, Discussed with Nurse and Discussed with Patient
Labs: Labs Reviewed by me, Discussed with Physician and Discussed with Patient
Old Records: Reviewed
Assessment / Plan
-
Mr Menendez is a 79 yo male with a h/o pancreatitis x2 episodes in the past thought to be secondary to ETOH at the time who presents with upper abdominal pain across his upper abdomen radiating across to the right and left sides. He is most tender the
epigastrium. Prior imaging studies without cholelithiasis. US this presentation also without cholelithiasis although edema noted surrounding the gallbladder. MRCP done and pending. Suspect gallbladder edema is reactive to the pancreatitis. Await
formal read from radiology regarding stones/choledocholithiasis. None noted upon my review. Significant leukocytosis noted, suspect secondary to pancreatitis. Bilirubin elevated to 2.3, normal transaminases. Lipase >4k.
Discussed role of cholecystectomy in prevention of future episodes; however, if no stones present on MRI this admission, there is no urgency to this.
Plan:
Further surgical recs pending MRCP
Diet and pancreatitis management as per primary team
Trend labs/exams
On empiric abx
[2025-01-24] MEDS: LR IV (22:08)
[2025-01-25] VITALS (9 sets, daily range): BP systolic 159–185; BP diastolic 75–95
[2025-01-25] MEDS: LR 1000 IV ×3 (03:56→20:14)
[2025-01-25] MEDS: MORPHINE SULFATE 4 MG IV (03:58)
[2025-01-25] MEDS: ZOSYN 50 IV ×4 (04:07→21:40)
[2025-01-25] MEDS: NORVASC 2.5 MG PO (04:11)
[2025-01-25] MEDS: TIKOSYN 500 MCG PO ×2 (07:58→20:14)
[2025-01-25] MEDS: THIAMINE INJECTION 200 MG IV ×2 (07:58→20:14)
[2025-01-25] MEDS: NORVASC 5 MG PO (07:59)
[2025-01-25] MEDS: TOPROL XL 50 MG PO (07:59)
[2025-01-25] MEDS: HEPARIN 5000 UNITS SC (07:59)
--- NOTE | 2025-01-25 09:46 | W.PN.HOSP.TC ---
Today's Communication/Plan
-
see A/P
Assessment / Plan
Assessment / Plan
HPI: 79-year-old male with atrial fibrillation not on anticoagulation, GERD, hypertension; p/w abdominal pain.
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
A/P:
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
# Acute cholecystitis from adjacent pancreatitis
# Mild Hyperbilirubinemia
MRCP without choledocholithiasis. Confirmed acute interstitial edematous pancreatitis. Dilatation of the main pancreatic duct. 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
neoplasms.
No cholelithiasis.
Gallbladder wall thickening is favored to be reactive from the adjacent pancreatitis, less likely acalculus cholecystitis.
Cont NPO with IVF RL
Cont IV abx Zosyn
Pain control, antiemetics
Gen Surg on board, no plan for surgery
# EtOH intake
4-6 beers daily
CIWA protocol
BCare CS
Counselled extensively on alcohol cessation
# Stable Pancreatic cyst
# Hyponatremia, mild
monitor
# Atrial fibrillation
resumed Xarelto as there is no plan for procedure
Continue home dofetilide, Toprol
# GERD
# Hypertension
Cont home Norvasc, Toprol
# Anxiety
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
DW RN
DW GS
total time 51 min
Anticipated Discharge: 24 - 48 hours
Subjective/Interval History
-
Date of Service: January 25, 2025
Objective Data
-
Labs:
Laboratory Results
01/25/25
08:59
WBC Pending
Hgb Pending
Hct Pending
Plt Count Pending
Sodium Pending
Potassium Pending
Chloride Pending
Carbon Dioxide Pending
BUN Pending
Creatinine Pending
Glucose Pending
Calcium Pending
Total Bilirubin Pending
AST Pending
ALT Pending
Alkaline Phosphatase Pending
Vital Signs:
Vital Signs
Temp Pulse Resp BP Pulse Ox
36.8 C 72 18 159/78 97
01/25/25 07:30 01/25/25 09:18 01/25/25 07:30 01/25/25 09:18 01/25/25 07:30
I&O
01/24/25 01/25/25 01/26/25
06:59 06:59 06:59
Intake Total 3875 / 3875
Output Total 400 / 400 800 / 800
Balance -400 / -400 3075 / 3075
Review of Systems
-
History Source: Patient
Abdomen/GI: Reports Abdominal Pain (much improved )
Physical Exam
-
General: Well Developed, Well Nourished, No Apparent Distress, Comfortable and Conversant
HEENT: Normocephalic and Atraumatic
Respiratory: Clear to Auscultation and Non Labored Respirations; Negative Accessory Resp Muscle Use
Cardiac: Regular Rhythm and S1/S2
GI: Soft, Nontender, Nondistended and Normal Bowel Sounds
Musculoskeletal: No Edema
Neuro: Awake and Alert
Psych: Calm and Intact Judgement/Insight
Data Reviewed
-
MRI: Report Reviewed by me
Labs: Labs Reviewed by me
[2025-01-25 09:55] LABS: Hematocrit 42.2 % (39.0-52.0); Hemoglobin 14.5 g/dL (13.0-18.0); Mean Corp Hgb Conc. 34.4 g/dL (33.0-37.0); Mean Corpuscular Volume 92.5 fL (80.0-94.0); Platelet Count 172 10^3/uL (130-400); Red Cell Dist. Width 13.1 % (11.5-14.5)
[2025-01-25 10:21] LABS: ALT (SGPT) 15 U/L (0-50); AST (SGOT) 22 U/L (17-59); Albumin 3.3 g/dl (3.5-5.0); Alkaline Phosphatase 77 U/L (38-126); Blood Urea Nitrogen 11 mg/dl (9-20); Calcium 8.5 mg/dl (8.4-10.2); Carbon Dioxide 29 mmol/L (22-30); Chloride 98 mmol/L (98-107); Estimated Creatinine Clearance 117 ml/min; Glucose 95 mg/dl (70-99); Lipase 482 U/L (23-300); Potassium 3.5 mmol/L (3.5-5.1); Sodium 132 mmol/L (135-145); Total Protein 5.9 g/dl (6.3-8.2); eGFR > 60.00
--- NOTE | 2025-01-25 11:12 | W.PN.GS2 ---
Today's Communication / Plan
-
General surgery will sign off
Assessment / Plan
-
This is a 79-year-old male with significant alcohol history who presents with pancreatitis likely of EtOH etiology. MRI confirms no stones, do not suspect gallstone mediated pancreatitis.
No role for cholecystectomy.
General surgery will sign off, patient can follow-up with us as needed.
Time Spent
Total Time Spent with Patient (in minutes): 20
Subjective Data
-
Date of Service: January 25, 2025
Interval Events:
No acute events overnight. Slept well. Pain Controlled. Denies Nausea/Vomiting, +bowel function. Tolerating diet.
Objective Data
-
Intake and Output
01/24/25 01/25/25 01/26/25
06:59 06:59 06:59
Intake Total 3875 / 3875
Output Total 400 / 400 800 / 800
Balance -400 / -400 3075 / 3075
Intake:
IV fluids (Total) 3675 / 3675
IV piggybacks 200 / 200
Output:
Urine, Voided 400 / 400 800 / 800
Other:
Number of approximated MODERATE 1
amounts of urine
Number of approximated LARGE 1
amounts of urine
Vital Signs
Temp Pulse Resp BP Pulse Ox
98.3 F 72 18 159/78 97
01/25/25 07:30 01/25/25 09:18 01/25/25 07:30 01/25/25 09:18 01/25/25 07:30
Lab Results
01/25/25 08:59
01/25/25 08:59
Calcium 8.5 mg/dl (8.4-10.2) 01/25/25 08:59
Total Bilirubin 1.8 mg/dl (0.2-1.3) H 01/25/25 08:59
Direct Bilirubin 0.6 mg/dl (0.0-0.4) H 01/23/25 07:14
AST 22 U/L (17-59) 01/25/25 08:59
ALT 15 U/L (0-50) 01/25/25 08:59
Alkaline Phosphatase 77 U/L (38-126) 01/25/25 08:59
Total Protein 5.9 g/dl (6.3-8.2) L 01/25/25 08:59
Albumin 3.3 g/dl (3.5-5.0) L 01/25/25 08:59
Physical Exam
-
GENERAL/NEURO: Awake, Alert, no distress
CHEST: Unlabored breathing on RA
ABDOMEN: Soft, mildly tender, nondistended, obese
Patient has a howard catheter: No
Patient has a central line: No
[2025-01-25] MEDS: MORPHINE SULFATE 2 MG IV ×2 (12:09→20:16)
--- NOTE | 2025-01-25 13:06 | CM ---
Reviewed chart. Met with pt at bedside. IMM given and place on chart. Continues on IVF and IV Heparin.
Plan: Home with no needs
[2025-01-25] MEDS: XARELTO 20 MG PO (17:08)
[2025-01-26] VITALS (7 sets, daily range): BP systolic 145–164; BP diastolic 76–84
[2025-01-26] MEDS: ZOSYN 50 IV ×4 (05:00→21:04)
[2025-01-26] MEDS: LR 1000 IV (05:23)
[2025-01-26] MEDS: TOPROL XL 50 MG PO (08:52)
[2025-01-26] MEDS: TIKOSYN 500 MCG PO ×2 (08:52→20:01)
[2025-01-26] MEDS: NORVASC 5 MG PO (08:53)
[2025-01-26] MEDS: THIAMINE INJECTION 200 MG IV (08:53)
[2025-01-26] MEDS: FLUSH (NSS) 2 FLUSH IV ×2 (08:55→16:41)
--- NOTE | 2025-01-26 08:59 | W.PN.HOSP.TC ---
Addendum entered and electronically signed by Za Pickens MD 01/26/25 11:35:
# Paroxysmal atrial fibrillation
Original Note:
Today's Communication/Plan
-
see A/P
Assessment / Plan
Assessment / Plan
HPI: 79-year-old male with atrial fibrillation not on anticoagulation, GERD, hypertension; p/w abdominal pain.
Symptoms began 2 days APPLICATIONS CHEMIST in the right upper quadrant.
A/P:
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
# Acute cholecystitis from adjacent pancreatitis
# Mild Hyperbilirubinemia
MRCP without choledocholithiasis. Confirmed acute interstitial edematous pancreatitis. Dilatation of the main pancreatic duct. 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
neoplasms.
No cholelithiasis.
Gallbladder wall thickening is favored to be reactive from the adjacent pancreatitis, less likely acalculus cholecystitis.
Start clears today and ADAT
anticipate to DC IVF RL today if blood work shows improvement (pending today's blood work)
Cont IV abx Zosyn
Pain control, antiemetics
Gen Surg on board, no plan for surgery
# EtOH intake
4-6 beers daily
CIWA protocol
BCare CS
Counselled extensively on alcohol cessation
# Stable Pancreatic cyst
# Hyponatremia, mild
monitor
# Atrial fibrillation
resumed Xarelto as there is no plan for procedure
Continue home dofetilide, Toprol
# GERD
# Hypertension
Cont home Norvasc, Toprol
# Anxiety
DVT prophylaxis: resumed APPLICATIONS CHEMIST Xarelto
DW RN
Anticipated Discharge: Within 24 hours
Subjective/Interval History
-
Date of Service: January 26, 2025
Objective Data
-
Labs:
Laboratory Results
01/26/25
08:21
WBC Pending
Hgb Pending
Hct Pending
Plt Count Pending
Sodium Pending
Potassium Pending
Chloride Pending
Carbon Dioxide Pending
BUN Pending
Creatinine Pending
Glucose Pending
Calcium Pending
Total Bilirubin Pending
AST Pending
ALT Pending
Alkaline Phosphatase Pending
Vital Signs:
Vital Signs
Temp Pulse Resp BP Pulse Ox
36.9 C 83 18 145/76 97
01/26/25 07:25 01/26/25 07:25 01/26/25 07:25 01/26/25 07:25 01/26/25 07:25
I&O
01/25/25 01/26/25 01/27/25
06:59 06:59 06:59
Intake Total 3875 / 3875 2970 / 2970
Output Total 800 / 800 1600 / 1600
Balance 3075 / 3075 1370 / 1370
Review of Systems
-
History Source: Patient
Abdomen/GI: Reports Abdominal Pain (much improved )
Physical Exam
-
General: Well Developed, Well Nourished, No Apparent Distress, Comfortable and Conversant
HEENT: Normocephalic and Atraumatic
Respiratory: Clear to Auscultation and Non Labored Respirations; Negative Accessory Resp Muscle Use
Cardiac: Regular Rhythm and S1/S2
GI: Soft, Nontender, Nondistended and Normal Bowel Sounds
Musculoskeletal: No Edema
Neuro: Awake and Alert
Psych: Calm and Intact Judgement/Insight
Data Reviewed
-
MRI: Report Reviewed by me
Labs: Labs Reviewed by me
[2025-01-26 09:12] LABS: Hematocrit 39.0 % (39.0-52.0); Hemoglobin 13.5 g/dL (13.0-18.0); Mean Corp Hgb Conc. 34.6 g/dL (33.0-37.0); Mean Corpuscular Volume 95.1 fL (80.0-94.0); Platelet Count 172 10^3/uL (130-400); Red Cell Dist. Width 12.8 % (11.5-14.5)
[2025-01-26 09:40] LABS: ALT (SGPT) 14 U/L (0-50); AST (SGOT) 23 U/L (17-59); Albumin 3.0 g/dl (3.5-5.0); Alkaline Phosphatase 76 U/L (38-126); Blood Urea Nitrogen 11 mg/dl (9-20); Calcium 8.3 mg/dl (8.4-10.2); Carbon Dioxide 30 mmol/L (22-30); Chloride 98 mmol/L (98-107); Estimated Creatinine Clearance 117 ml/min; Glucose 91 mg/dl (70-99); Lipase 199 U/L (23-300); Magnesium 1.9 mg/dl (1.6-2.3); Potassium 3.3 mmol/L (3.5-5.1); Sodium 133 mmol/L (135-145); Total Protein 5.6 g/dl (6.3-8.2); eGFR > 60.00
--- NOTE | 2025-01-26 10:29 | PN.CDI ---
CDI
- -
CDI:
Physician Documentation Request
Admit Date: 01/23/25 12:22
Dear Doctor Celio,
Please review the following and provide your response in the progress notes.
Clinical Indicators:
- 01/23 H&P indicates history of afib without specification
- 'Atrial fibrillation with prior multiple cardioversions, ablations x 2 last, 2016, not on Xarelto anymore'
- Home medication Xarelto & Tikosyn
If possible, please provide further specificity regarding atrial fibrillation, such as:
Paroxysmal atrial fibrillation - terminates spontaneously or with intervention within 7 days of onset
Persistent atrial fibrillation - episodes of continuous AF that last more than 7 days and do not self-terminate
Permanent atrial fibrillation - when a decision has been made to accept the presence of AF and there is no further attempt to restore or maintain sinus rhythm
Other - please specify
Use of terms such as suspected, likely, concern for, or probable (associated with a specific diagnosis that is being evaluated, monitored, or treated as if it exists) are acceptable and can be coded in the inpatient setting, when documented at the
time of discharge.
Thank you,
Oleg Mueller RN
CDI Specialist
Please use your independent medical judgment in providing your response.
[2025-01-26] MEDS: KCL 40 MEQ PO (12:38)
[2025-01-26] MEDS: LR IV (12:41)
--- NOTE | 2025-01-26 14:14 | CM ---
Reviewed pt chart and spoke to him at bedside. Is currently on clear liquids
Spoke to pt about his interest in receiving resources from [facility] regarding reducing or stopping his alcohol consumption. Pt stated he is interested and that he would be interested. [facility] notified
Home with [facility] resources
[2025-01-26] MEDS: XARELTO 20 MG PO (18:22)
[2025-01-26] MEDS: VITAMIN B1 100 MG PO (20:01)
[2025-01-26] MEDS: SENOKOT-S 1 TABLET PO (20:02)
[2025-01-27 03:26] VITALS: BP 161/82
[2025-01-27] MEDS: ZOSYN 50 IV ×2 (04:16→09:05)
[2025-01-27 07:20] VITALS: BP 166/83
[2025-01-27] MEDS: VITAMIN B1 100 MG PO (09:04)
[2025-01-27] MEDS: TIKOSYN 500 MCG PO (09:04)
[2025-01-27] MEDS: NORVASC 5 MG PO (09:05)
[2025-01-27] MEDS: FLUSH (NSS) 2 FLUSH IV (09:05)
[2025-01-27] MEDS: TOPROL XL 50 MG PO (09:05)
[2025-01-27] MEDS: MIRALAX 17 GRAMS PO (09:07)
--- NOTE | 2025-01-27 09:31 | W.PN.HOSP.TC ---
Today's Communication/Plan
-
DC today after tolerating low for solid for lunch
Assessment / Plan
Assessment / Plan
HPI: 79-year-old male with atrial fibrillation not on anticoagulation, GERD, hypertension; p/w abdominal pain.
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
A/P:
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
# Acute cholecystitis from adjacent pancreatitis
# Mild Hyperbilirubinemia
MRCP without choledocholithiasis. Confirmed acute interstitial edematous pancreatitis. Dilatation of the main pancreatic duct. 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
neoplasms.
No cholelithiasis.
Gallbladder wall thickening is favored to be reactive from the adjacent pancreatitis, less likely acalculus cholecystitis.
Advance diet to low fat.
Pt has received IV abx Zosyn for 5 days during hospital stay, no need for further Abx after DC
Pain control, antiemetics
Gen Surg on board, no plan for surgery
# EtOH intake
4-6 beers daily
CIWA protocol
[facility] CSed
Counselled extensively on alcohol cessation
# Stable Pancreatic cyst
# Hyponatremia, mild
monitor
# Atrial fibrillation
resumed Xarelto as there is no plan for procedure
Continue home dofetilide, Toprol
# GERD
# Hypertension
Cont home Norvasc, Toprol
# Anxiety
DVT prophylaxis: resumed TEACHER AIDE Xarelto
Anticipated Discharge: Today
Subjective/Interval History
-
Date of Service: January 27, 2025
Objective Data
-
Labs:
Laboratory Results
01/27/25
09:29
WBC Pending
Hgb Pending
Hct Pending
Plt Count Pending
Sodium Pending
Potassium Pending
Chloride Pending
Carbon Dioxide Pending
BUN Pending
Creatinine Pending
Glucose Pending
Calcium Pending
Total Bilirubin Pending
AST Pending
ALT Pending
Alkaline Phosphatase Pending
Vital Signs:
Vital Signs
Temp Pulse Resp BP Pulse Ox
37.1 C 77 16 166/83 98
01/27/25 07:20 01/27/25 09:05 01/27/25 07:20 01/27/25 09:05 01/27/25 07:20
I&O
01/26/25 01/27/25 01/28/25
06:59 06:59 06:59
Intake Total 2970 / 2970 1660 / 1660
Output Total 1600 / 1600 200 / 200
Balance 1370 / 1370 1460 / 1460
Review of Systems
-
History Source: Patient
Abdomen/GI: Denies Abdominal Pain
Physical Exam
-
General: Well Developed, Well Nourished, No Apparent Distress, Comfortable and Conversant
HEENT: Normocephalic and Atraumatic
Respiratory: Clear to Auscultation and Non Labored Respirations; Negative Accessory Resp Muscle Use
Cardiac: Regular Rhythm and S1/S2
GI: Soft, Nontender, Nondistended and Normal Bowel Sounds
Musculoskeletal: No Edema
Neuro: Awake and Alert
Psych: Calm and Intact Judgement/Insight
Data Reviewed
-
MRI: Report Reviewed by me
Labs: Labs Reviewed by me
[2025-01-27 09:43] LABS: Hematocrit 39.6 % (39.0-52.0); Hemoglobin 14.0 g/dL (13.0-18.0); Mean Corp Hgb Conc. 35.4 g/dL (33.0-37.0); Mean Corpuscular Volume 91.9 fL (80.0-94.0); Platelet Count 180 10^3/uL (130-400); Red Cell Dist. Width 12.6 % (11.5-14.5)
[2025-01-27 10:21] LABS: ALT (SGPT) 23 U/L (0-50); AST (SGOT) 36 U/L (17-59); Albumin 3.3 g/dl (3.5-5.0); Alkaline Phosphatase 79 U/L (38-126); Calcium 8.5 mg/dl (8.4-10.2); Carbon Dioxide 27 mmol/L (22-30); Chloride 98 mmol/L (98-107); Estimated Creatinine Clearance > 125 ml/min; Glucose 110 mg/dl (70-99); Lipase 259 U/L (23-300); Magnesium 1.9 mg/dl (1.6-2.3); Potassium 3.3 mmol/L (3.5-5.1); Sodium 130 mmol/L (135-145); Total Protein 6.1 g/dl (6.3-8.2); eGFR > 60.00
[2025-01-27 10:30] LABS: Blood Urea Nitrogen 9 mg/dl (9-20)
[2025-01-27 11:20] VITALS: BP 165/77
--- NOTE | 2025-01-27 12:07 | W.DCSUMMARY ---
Discharge Summary
Discharge Data
Date of Admission: 01/23/25
Date of Discharge: 01/27/25
Total time spent discharging patient (in min): 40
-
Pending Results: No
Hospital Course
Principal Diagnosis:
Right upper quadrant abdominal pain 2/2 Alcohol Pancreatitis with adjacent acute cholecystitis
Chronic Diagnoses:�
Alcohol intake
Stable Pancreatic cyst
Atrial fibrillation, on Xarelto, dofetilide and Toprol
GERD
Hypertension
Anxiety
Consultations:�
General surgery
Procedures:�
None
Clinical course:�
This is a 79-year-old male with past medical history as stated above, who presented with abdominal pain.
Problem 1:
Right upper quadrant abdominal pain 2/2 Alcohol Pancreatitis with adjacent acute cholecystitis.
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
papillary mucinous neoplasms.
He does not require surgery per general surgeon.
His pancreatitis was treated medically with n.p.o. and IV fluid.
Diet was eventually added back, and he was able to tolerate a low-fat diet prior to discharge.
The patient did receive IV antibiotic Zosyn for 5 days while in the hospital, no further antibiotic was continued after discharge.
He can check repeat CBC and BMP with result to his PCP in 1 week following discharge.
Problem 2:
EtOH intake.
[facility] was consulted and he can follow-up outpatient for further counseling.
As for the rest of his medical problems, they were stable during his hospital stay.
Discharge Plan
-
Patient Disposition: Home (Routine Discharge)
Discharge Diagnosis/Procedures: Alcohol Pancreatitis
Condition: Fair
Diet: As tolerated, Low Fat and Low Cholesterol
Driving Restrictions: As prior to admission
Blood Work: CBC, BMP in 1 week with result to PCP
Activity Restrictions/Additional Instructions:
Follow up with your PCP for better BP management
Referrals:
PRIVATE,PHYSICIAN [Family Provider, Internal Medicine] - in less than 1 week
Prescriptions:
New
(DME) CBC without diff
See Rx Instructions .Route .MEDSUPPLY Qty: 1 0RF
Rx Instructions:
02/01 - 02/05/2025
result to PCP
# pancreatitis
(DME) BMP
See Rx Instructions .Route .MEDSUPPLY Qty: 1 0RF
Rx Instructions:
02/01 - 02/05/2025
result to PCP
# pancreatitis
Continued
atenolol 50 MG tablet
50 mg PO DAILYPRN PRN (Reason: palpitations/htn)
dofetilide 500 MCG capsule
500 mcg PO BID
metoprolol succinate 50 MG tablet extended release 24 hr
50 mg PO DAILY
milk thistle 500 MG capsule
1 cap PO QPM
amlodipine 5 MG tablet
5 mg PO DAILY
Xarelto 20 MG tablet
20 mg PO QPM PRN (Reason: a-fib)
cholecalciferol (vitamin D3) [Vitamin D3] 50 mcg (2,000 unit) Capsule
50 mcg PO DAILY
Discharge Orders:
Discharge Patient (As Directed); Ordered 01/27/25
Ordered By: Za Pickens
Discharge Date and Time
Print Language: UKRAINIAN
--- NOTE | 2025-01-27 12:20 | CM ---
Reviewed Chart. Met with pt chairside. Planning discharge today after he tolerates lunch. Pt states he will drive himself home when discharged. Pt state [facility] came by yesterday and provided resources fo alcohol cessation.
Plan: Home no needs
[2025-01-27] MEDS: KCL 40 MEQ PO (13:40)
[2025-01-27] MEDS: FLUZONE HIGH-DOSE 2025-26 0.5 ML IM (13:41)
== END 2025-01-27 14:31 | disposition home or self-care (01) | DRG 439 ==
LOC: 4 EAST ACU 12:22
PROVIDERS: Physician Assistant; ADMITTING PHYSICIAN Internal Medicine; ATTENDING PHYSICIAN Internal Medicine; CONSULT PHYSICIAN Surgery; EMERGENCY PHYSICIAN Emergency Medicine
PROC: 3E02340 Introduction of Influenza Vaccine into Muscle, Percutaneous Approach (ICD-10-PCS; 2025-01-27)
DX: K85.90 Acute pancreatitis without necrosis or infection, unspecified (principal); E87.1 Hypo-osmolality and hyponatremia; K81.0 Acute cholecystitis; K86.2 Cyst of pancreas; K21.9 Gastro-esophageal reflux disease without esophagitis; I48.0 Paroxysmal atrial fibrillation; Z79.01 Long term (current) use of anticoagulants; I10 Essential (primary) hypertension; F41.9 Anxiety disorder, unspecified; Z88.8 Allergy status to other drugs, medicaments and biological substances; M85.80 Other specified disorders of bone density and structure, unspecified site; G47.33 Obstructive sleep apnea (adult) (pediatric); Z23 Encounter for immunization
CPT/HCPCS: 74183; 76700; 80053; 81003; 81015; 82248; 83690; 83735; 85025; 85027; 90662; 96361; 96365; 96375; 96376; 99285; A9575; G0008

== ENCOUNTER → 2025-02-11 09:35 | Outpatient (REF) | payer OTHER, SELFPAY ==
[2025-02-11 10:27] LABS: Hematocrit 43.0 % (39.0-52.0); Hemoglobin 14.7 g/dL (13.0-18.0); Mean Corp Hgb Conc. 34.2 g/dL (33.0-37.0); Mean Corpuscular Volume 94.5 fL (80.0-94.0); Platelet Count 412 10^3/uL (130-400); Red Cell Dist. Width 12.8 % (11.5-14.5)
[2025-02-11 10:56] LABS: Blood Urea Nitrogen 10 mg/dl (9-20); Calcium 9.8 mg/dl (8.4-10.2); Carbon Dioxide 28 mmol/L (22-30); Chloride 105 mmol/L (98-107); Glucose 109 mg/dl (70-99); Potassium 4.6 mmol/L (3.5-5.1); Sodium 138 mmol/L (135-145); eGFR > 60.00
== END ==
LOC: REG 09:35
PROVIDERS: ATTENDING PHYSICIAN Internal Medicine; FAMILY PHYSICIAN Registered Nurse
DX: K85.90 Acute pancreatitis without necrosis or infection, unspecified (principal)
CPT/HCPCS: 36415; 80048; 85027